=== PATIENT | male | born 1980 | race Caucasian/White ===

== ENCOUNTER → 2023-08-01 01:00 | Outpatient (CLI) | payer BC, SELFPAY ==
--- NOTE | 2023-08-01 06:30 | DI.NM_ITS ---
Exam(s) NM LUNG SCAN VENT PERF AEROS EXAM: NM LUNG SCAN VENT PERF AEROS CLINICAL HISTORY: assess for CTED,sob,r06.02,pe,i26.99. TECHNIQUE: Injected Dose: Ventilation: 35 mCi Tc-99m DTPA via inhalation Perfusion: 5 mCi Tc-99m MAA via IV COMPARISON: CT CT CTA CHEST W AND/OR WO CONTRAST from 07/21/2023 CR XR CHEST 2V PA LATERAL from 08/01/2023 FINDINGS: There are no perfusion defects There are no V/Q mismatches IMPRESSION: The PIOPED criteria this scan is low probability for the presence of recent hemodynamically significa nt pulmonary emboli. Modified PIOPED II criteria Probability Criteria High Two or more segments of V/Q mismatch Low Normal Perfusion, Non segmental perfusion abnormalitie s, pleural effusion in at least 1/3 of pleural cavity with no other defect Radiograph/perfusion matched defect in mid to upper lung confined to segment, one to three small segmental perfusion defects (<25% of segment) Perfusion defect smaller than corresponding radiogra phic lesion. Intermediate All other findings DATA REPOSITORY:
--- NOTE | 2023-08-01 06:30 | DI.RAD_ITS ---
Exam(s) XR CHEST 2V PA LATERAL EXAM: XR CHEST 2V PA LATERAL CLINICAL HISTORY: pre-VQ scan,pe,I26.99, sob, r06.02. TECHNIQUE: 2D digital imaging was performed. COMPARISON: CR XR CHEST 2VW (D) from 06/12/[address] CTA CHEST W AND/OR WO CONTRAST from 07/21/2023 FINDINGS: 2 views: Heart size is normal. The mediastinum is not widened. There is persistent interstitial and patchy infiltrate in the lateral aspect of the right lung. No p leural effusions. No new left lung findings. IMPRESSION: Persistent infiltrate in the lateral right lung. Improved left lung infiltrate. No pleural effusion s DATA REPOSITORY: RADIATION DOSE DELIVERED:
== END ==
PROVIDERS: PCP Internal Medicine; Visit Provider Student in an Organized Health Care Education/Training Program
DX: I26.99 Other pulmonary embolism without acute cor pulmonale (principal); R06.02 Shortness of breath; R91.8 Other nonspecific abnormal finding of lung field
CPT/HCPCS: 71046; 78582

== ENCOUNTER 2025-07-21 19:23 | Outpatient (REF) | payer BC, SELFPAY ==
[2025-07-28 00:45] LABS: 2-OH-Ethyl-Flurazepam Negative ng/mL (Cutoff: 10); 7-NH-Clonazepam 62 ng/mL (Cutoff: 10); 7-NH-Flunitrazepam Negative ng/mL (Cutoff: 10); Alpha OH-Alprazolam Negative ng/mL (Cutoff: 10); Alpha-OH Midazolam Negative ng/mL (Cutoff: 10); Benzodiazepines Interpretation Positive.; Prazepam Negative ng/mL (Cutoff: 10); Zolpidem Carboxylic acid Negative ng/mL (Cutoff: 10)
== END 2025-07-21 19:24 | disposition home or self-care (01) ==
LOC: NCHCN 19:23
PROVIDERS: PCP Internal Medicine; Visit Provider Physician Assistant
DX: G89.29 Other chronic pain (principal)
CPT/HCPCS: 80361; 80362; 80365; 80346